=== PATIENT | female | born 1985 | race African-American/Black ===

== ENCOUNTER 2025-06-29 11:27 | Emergency (ER) | payer MEDICAID ==
[~2025-06-29] VITALS: Ht 170.2 cm; Wt 160.0 kg
[2025-06-29 11:29] VITALS: TEMP 97.7; O2SAT 100
[2025-06-29 13:00] LABS: BASOPHILS % 0.5 % (0.0-2.0); EOSINOPHILS % 3.2 % (0.0-5.0); HEMATOCRIT. 31.0 % (36.0-48.0); HEMOGLOBIN. 9.8 g/dL (12.0-16.0); LYMPHOCYTES % 17.2 % (20.0-50.0); MEAN PLATELET VOLUME 9.1 fl (7.4-10.4); MONOCYTES % 8.8 % (2.0-8.0); NEUTROPHILS % 70.3 % (40.0-76.0); PLATELET 251 x1000/uL (130-400); RED BLOOD CELL COUNT 3.89 mill/uL (4.2-5.4); RED CELL DISTRIBUTION WIDTH 16.7 % (11.6-14.6)
[2025-06-29 13:18] LABS: CREATININE 0.7 mg/dL (0.6-1.0); UREA NITROGEN BLOOD 7 mg/dL (9-23)
[2025-06-29 13:19] LABS: PROTEIN TOTAL 7.1 g/dL (6.0-8.3)
[2025-06-29 13:20] LABS: ASPARTATE AMINOTRANSFERASE 15 IU/L (<34); BILIRUBIN TOTAL 0.3 mg/dL (0.1-1.0); TROPONIN I HIGH SENSITIVITY < 4 ng/L (3.0-34)
[2025-06-29] MEDS: FUROSEMIDE 20MG TABLET PO ONE (13:32)
[2025-06-29] MEDS ORDERED: HYDR12.54 MT (14:16)
[2025-06-29] MEDS ORDERED: LISI10TA26 MT (14:16)
[2025-06-29 14:30] VITALS: BP 178/99; PULSE 70; RESP 15; O2SAT 99
== END 2025-06-29 14:33 | disposition home or self-care (01) ==
LOC: ER 11:27
DX: R60.0 Localized edema (principal); D64.9 Anemia, unspecified; I10 Essential (primary) hypertension; R06.02 Shortness of breath; Z79.899 Other long term (current) drug therapy
CPT/HCPCS: 36415; 71045; 80053; 83880; 84484; 85025; 93005; 93970; 99285